=== PATIENT | male | born 1990 | race Caucasian/White ===

== ENCOUNTER 2017-09-24 22:14 | Emergency (ER) | payer OTHER ==
--- NOTE | 2017-09-24 22:21 | ER Report ---
History and Physical Time Seen By MD: 22:21 HPI/ROS CHIEF COMPLAINT: Finger laceration HISTORY OF PRESENT ILLNESS: 27-year-old male presents with a left long finger laceration. He was cutting ribs when he slipped with a knife, cutting the back of his left long finger. Patient thinks his tetanus status is up-to-date. Allergies: Coded Allergies: Penicillins (Verified Allergy, Intermediate, "RASH", 09/24/17) Home Meds No Active Prescriptions or Reported Meds Reviewed Nurses Notes: Yes Old Medical Records Reviewed: Yes Constitutional Vital Sign - Last 24 Hours 09/24/17 22:42 Temp 97.6 Pulse 64 Resp 14 B/P (MAP) 122/78 Pulse Ox 95 O2 Delivery Room Air Physical Exam General appearance: Alert no distress. Respiratory: Chest is non tender, lungs are clear to auscultation. Cardiac: Regular rate and rhythm Extremities: Examination of the left hand reveals a superficial laceration just distal to the PIP joint. Distal tendon functions intact. Distal neurovascular functions intact. DIFFERENTIAL DIAGNOSIS: After history and physical exam differential diagnosis was considered for tendon laceration, finger laceration, nerve laceration, joint penetration. Medical Decision Making ED Course/Re-evaluation ED Course Patient was admitted to an examination room. H&P was done. The parental diagnoses was considered. On clinical examination. Patient has a superficial laceration. There is no evidence of tendon injury. The wound is repaired as noted below. Wound care was discussed. Suture removal will be in 10 days. Procedure: Laceration repair. Verbal consent was obtained from the patient. The 1.5 cm laceration on the dorsal left long finger distal to the PIP joint was anesthetized in the usual fashion. The wound was scrubbed, draped and explored to its base with a gloved finger. No tendon injury was identified. The wound was repaired with 5-0 Prolene 3 sutures. The wound repair was simple. The procedure was performed by myself. 09/24/2017 10:46:27 pm patient had a vasovagal syncopal reaction just prior to injection of his finger with anesthetic. He was laid supine. His legs were lifted up. He responded immediately with return of consciousness. Decision to Disposition Date: Sep 24, 2017 Decision to Disposition Time: 23:14 Depart Departure Latest Vital Signs Vital Signs Date Time Temp Pulse Resp B/P (MAP) Pulse Ox O2 Delivery O2 Flow Rate FiO2 7/3/18 22:42 97.6 64 14 122/78 95 Room Air Impression: Primary Impression: Laceration of finger of left hand Condition: Improved Disposition: HOME OR SELF-CARE New Scripts No Active Prescriptions or Reported Meds Patient Instructions: Finger Laceration (ED) Additional Instructions: Perform daily wound care Return to have your sutures removed in 10 days Problem Qualifiers Primary Impression: Laceration of finger of left hand Encounter type: initial encounter Finger: middle finger Damage to nail status: without damage Foreign body presence: without foreign body Qualified Codes: S61.213A - Laceration without foreign body of left middle finger without damage to nail, initial encounter MELANIA KINGSLEY DO Sep 24, 2017 22:21
[2017-09-24 22:42] VITALS: BP 122/78
[2017-09-24] MEDS ORDERED: predniSONE 20 MG TAB PO ONE (23:20)
[2017-09-24] MEDS ORDERED: LEVOFLOXACIN 500 MG TAB PO ONE (23:20)
== END 2017-09-24 23:40 | disposition home or self-care (01) ==
LOC: ER 22:29
DX: S61.213A Laceration without foreign body of left middle finger without damage to nail, initial encounter (principal); W26.0XXA Contact with knife, initial encounter
CPT/HCPCS: 99282